=== PATIENT | female | born 1980 ===

== ENCOUNTER 2024-10-11 18:35 | Emergency (ER) | payer OTHER ==
[~2024-10-11] VITALS: Ht 157.5 cm; Wt 65.9 kg
[2024-10-11 18:42] VITALS: TEMP 98.1
[2024-10-11 22:03] VITALS: BP 125/89; PULSE 100; RESP 18; O2SAT 99
[2024-10-11] MEDS ORDERED: METH-659 PO (22:44)
[2024-10-11] MEDS ORDERED: ACET-66 PO (22:44)
[2024-10-11] MEDS ORDERED: IBUP-1554 PO (22:44)
[2024-10-11] MEDS: METHOCARBAMOL 500 MG TABLET PO ONE (22:49)
[2024-10-11] MEDS: NAPROXEN 250 MG TABLET PO ONE (22:49)
[2024-10-11] MEDS: ACETAMINOPHEN 500 MG TABLET PO ONE (22:49)
== END 2024-10-12 00:41 | disposition home or self-care (01) ==
LOC: EMS 18:35
DX: M54.2 Cervicalgia (principal); M54.50 Low back pain, unspecified; V43.52XA Car driver injured in collision with other type car in traffic accident, initial encounter; Y93.89 Activity, other specified; Y92.410 Unspecified street and highway as the place of occurrence of the external cause; Y99.8 Other external cause status
CPT/HCPCS: 99284; Z7502; Z7610